=== PATIENT | male | born 1980 | race Caucasian/White ===

== ENCOUNTER 2018-09-26 13:46 | Emergency (ER) | payer MEDICAID ==
[~2018-09-26] VITALS: Ht 172.7 cm; Wt 66.0 kg
[2018-09-26 14:48] VITALS: BP 127/80
== END 2018-09-26 17:21 | disposition left against medical advice (07) ==
LOC: ER 15:00
DX: S61.211A Laceration without foreign body of left index finger without damage to nail, initial encounter (principal); Z53.21 Procedure and treatment not carried out due to patient leaving prior to being seen by health care provider; X58.XXXA Exposure to other specified factors, initial encounter; Y93.89 Activity, other specified; Y92.89 Other specified places as the place of occurrence of the external cause; Y99.8 Other external cause status